=== PATIENT | female | born 1970 | race Caucasian/White ===

== ENCOUNTER 2016-11-21 11:46 | Day surgery (SDC) | payer OTHER, SELFPAY ==
[2016-11-21] MEDS ORDERED: LR 1,000 ML IV ONE (12:41)
[2016-11-21] MEDS ORDERED: LIDOCAINE 1% 2 ML INJ ID PRN (12:41)
[2016-11-21] MEDS ORDERED: MIDAZOLAM 2 MG/2 ML VIAL IVP ONE (12:44)
--- NOTE | 2016-11-21 12:44 | PDANEPAE ---
ANE History of Present Illness h/o breast implants presents for mastopexy ANE Past Medical History - Cardiovascular History Hx Hypertension: No Hx Arrhythmias: No Hx Chest Pain: No Hx Coronary Artery / Peripheral Vascular Disease: No Hx CHF / Valvular Disease: No Hx Palpitations: No - Pulmonary History Hx COPD: No Hx Asthma/Reactive Airway Disease: No Hx Recent Upper Respiratory Infection: No Hx Oxygen in Use at Home: No Hx Sleep Apnea: No Sleep Apnea Screening Result - Last Documented: Negative - Neurologic History Hx Cerebrovascular Accident: No Hx Seizures: No Hx Dementia: No - Endocrine History Hx Diabetes: No Obesity: no - Renal History Hx Renal Disorders: No - Liver History Hx Hepatic Disorders: No - Neurological & Psychiatric Hx Hx Neurological and Psychiatric Disorders: No - Cancer History Hx Cancer: No - Congenital Disorder History Hx Congenital Disorders: No - GI History Hx Gastrointestinal Disorders: No - Other Health History Other Health History: none - Chronic Pain History Chronic Pain: No - Surgical History Prior Surgeries: none ANE Review of Systems Review of Systems: - Exercise capacity METS (RN): 5 METS ANE Patient History - Allergies Allergies/Adverse Reactions: No Known Allergies Allergy (Unverified 09/07/09 16:30) - Home Medications Home medications: none Home Medications: NO HOME MEDS 09/07/09 [Last Taken Unknown] - Anes Hx Anes Hx: no prior problems - Smoking Hx Smoking Status: Never smoked - Family Anes Hx Family Hx Anesthesia Complications: none ANE Labs/Vital Signs - Vital Signs Height: 152.4 cm Weight: 49.895 kg ANE Physical Exam - Airway Neck exam: FROM Mallampati Score: Class 1 Mouth exam: normal dental/mouth exam - Pulmonary Pulmonary: no respiratory distress - Cardiovascular Cardiovascular: regular rate and rhythym - ASA Status ASA Status: II ANE Anesthesia Plan Anesthesia Plan: general endotracheal anesthesia
[2016-11-21 12:47] VITALS: PULSE 82
[2016-11-21] MEDS ORDERED: BACITRACIN ZINC 14.2 GM OINTTUBE TP ONE (12:49)
[2016-11-21] MEDS ORDERED: LIDOCAINE 1% 300 MG/30 ML SDV ONE (12:49)
--- NOTE | 2016-11-21 13:26 | PDGENHP ---
History & Physical Chief Complaint: desire to remove breast implants History of Present Illness: Susan is a 46 year old female who comes in to have her breast implants removed and the remaining tissue lifted. Pertinent Past, Social, Family History: non smoker Relevant Physical Exam: No masses in either breast. No axillary LAD. Implants soft and mobile. Cardiorespiratory Assessment: clear lung nichols, RRR
[2016-11-21] MEDS ORDERED: LIDOCAINE 0.5% 50 ML SDV ONE (14:08)
[2016-11-21] MEDS ORDERED: fentaNYL 100 MCG/2 ML INJ ONE (14:26)
[2016-11-21] MEDS ORDERED: ROCURONIUM 50 MG/5 ML VIAL ONE ×2 (14:27→15:21)
[2016-11-21] MEDS ORDERED: LIDOCAINE 2% 5 ML SDV ONE (14:27)
[2016-11-21] MEDS ORDERED: ONDANSETRON 4 MG/2 ML VIAL ONE (14:27)
[2016-11-21] MEDS ORDERED: DEXAMETHASONE 4 MG/ML VIAL ONE ×3 (14:27→14:40)
[2016-11-21] MEDS ORDERED: ceFAZolin 1 GM VIAL ONE ×2 (14:36)
[2016-11-21] MEDS ORDERED: ESMOLOL HCL 100 MG/10 ML VIAL IV ONE (14:48)
[2016-11-21] MEDS ORDERED: HYDROmorphONE/DILAUDID 2 MG/ML INJ ONE (14:56)
[2016-11-21] MEDS ORDERED: SUGAMMADEX SODIUM 200 MG/2 ML VIAL IVP ONE (15:21)
[2016-11-21] MEDS ORDERED: ALBUTEROL 3 ML DEYVIAL IH PRN (15:51)
[2016-11-21] MEDS ORDERED: METOCLOPRAMIDE 10 MG/2 ML VIAL IVP PRN (15:51)
[2016-11-21] MEDS ORDERED: HYDROmorphONE/DILAUDID 1 MG/ML INJ IVP PRN (15:51)
[2016-11-21] MEDS ORDERED: fentaNYL 100 MCG/2 ML INJ IVP PRN (15:51)
[2016-11-21] MEDS ORDERED: LR 500 ML IV PRN (15:51)
[2016-11-21] MEDS ORDERED: ACETAMINOPHEN 500 MG TAB PO PRN (15:51)
[2016-11-21] MEDS ORDERED: PROMETHAZINE HCL 25 MG/ML INJ IVP PRN (15:51)
[2016-11-21] MEDS ORDERED: NALOXONE HCL 0.4 MG/ML INJ IVP PRN (15:51)
[2016-11-21] MEDS ORDERED: OXYCODONE/APAP 5/325 TAB PO PRN (15:51)
[2016-11-21] MEDS ORDERED: ONDANSETRON 4 MG/2 ML VIAL IVP PRN (15:51)
--- NOTE | 2016-11-21 16:24 | POSTANESTH ---
Post Anesthetic Evaluation Cardiovascular Status: Normal, Stable Respiratory Status: Normal, Stable Level of Consciousness/Mental Status: Can Participate in Eval Pain Control: Adequate, Prn Tx Ordered Nausea/Vomiting Control: Adequate, Prn Tx Ordered Complications Possibly Related to Anesthesia: None Noted
[2016-11-21] MEDS ORDERED: HYDROmorphONE/DILAUDID 1 MG/ML INJ ONE (16:40)
[2016-11-21] MEDS ORDERED: OXYCODONE/APAP 5/325 TAB ONE (17:29)
[2016-11-21 17:46] VITALS: TEMP 97.5
[2016-11-21 17:48] VITALS: RESP 15; O2SAT 96
[2016-11-21 19:33] VITALS: BP 104/67
--- NOTE | 2016-11-22 01:55 | GOP ---
[f rep st] OPERATIVE REPORT DATE OF OPERATION: 11/21/2016 SURGEON: Nisa Turk Jr., MD MACHINE FILLER: Eddy Stanley CST, by surgeon request. ANESTHESIA: General inhalational anesthesia. PREOPERATIVE DIAGNOSIS: 1. Desire for removal of cosmetic breast implants. 2. Breast ptosis with desire to have breasts made smaller. POSTOPERATIVE DIAGNOSIS: 1. Desire for removal of cosmetic breast implants. 2. Breast ptosis with desire to have breasts made smaller. PROCEDURE PERFORMED: 1. Bilateral implant removal. 2. Bilateral Slade pattern breast reduction/mastopexy. FINDINGS: ESTIMATED BLOOD LOSS: 30 cc. INDICATIONS: The patient is a 46-year-old, white female, who came in after having a previous breast augmentation, feeling that the breasts were now too large for her body, as she had gained some weight and requested to have them removed and reshaped with a decrease in the overall size of the breasts. She was deemed an excellent candidate to have the implants removed from the breasts, lifted and redu ramy using a Slade pattern technique. She was taken to the operating room for that purpose. DESCRIPTION OF PROCEDURE: After risks and benefits of the procedure were explained to the patient, h ighlighting bleeding, infection, temporary or permanent nipple sensitivity changes, partial or comple te nipple loss, visible or hypertrophic scarring, poor wound healing, wound break down, poor cosmetic outcome and need for additional procedures, formal operative consent was obtained. She was taken to the operating room. After adequate inhalational anesthesia been provided, her premarked inframammar y crease incisions were injected with 1% lidocaine containing adrenaline. She was prepped and draped in normal sterile fashion. Procedure began by making the inferolateral incision bilaterally and tunneling down to the breast cap kassi. Capsulotomy was performed and small, intact, cohesive gel implants were removed. She was then placed in a seated position on the operating room table, and Petange's point was marked. She was pl aced back in the supine position. Under tension, Slade pattern was then marked around the desired nip ple position with 6 cm limbs. Medial palpation reveals minimal attachment of a desired inferior pedi zelda, and a bipedicle technique was utilized. Inferior, medial and lateral triangles were excised. M inimal undermining was performed to maximize vascularity to the nipple-areolar complex. A small amou nt of skin and fat above the nipple-areolar complex was removed. Slightly more tissue was removed fr om the larger lime right breast than the left breast to maximize symmetry. Then, #15 round DON drai ns were placed. Once the desired shape had been achieved, pockets were irrigated with normal saline. Meticulous hemostasis assured. The T-junction was closed with 2-0 Prolene suture. Horizontal and vertical limbs were closed using e verting deep dermal 3-0 Monocryl suture. Final skin eversion was carried out using surgical gildardo. Small dog ears were addressed bilaterally. The nipple-areolar complex was then inset under minimal tension using everting deep dermal 3-0 Monocryl suture in a running subcuticular 4-0 V-Loc 90 comple leslie closure. She had good capillary refill with good vascularity of the nipple-areolar complex. She had bacitracin, Xeroform, 4 x 4's, ABDs, and a compressive bra placed in the operating room. Then 1 5 cc of 0.25% plain Marcaine was instilled into each drain. She was extubated in the operating room, taken to the recovery room, awake and in stable condition. DRAINS: Two DON drains were placed. COMPLICATIONS: No complications. /[id number]/MODL
== END 2016-11-21 18:43 | disposition home or self-care (01) ==
LOC: FSGY 11:46
PROVIDERS: ATTEND Specialist
PROC: 0HPT0JZ Removal of Synthetic Substitute from Right Breast, Open Approach (ICD-10-PCS; principal; 2016-11-21 13:00)
PROC: 0HPU0JZ Removal of Synthetic Substitute from Left Breast, Open Approach (ICD-10-PCS; principal; 2016-11-21 13:00)
PROC: 0HBV0ZZ Excision of Bilateral Breast, Open Approach (ICD-10-PCS; principal; 2016-11-21 13:00)
PROC: 0HSV0ZZ Reposition Bilateral Breast, Open Approach (ICD-10-PCS; principal; 2016-11-21 13:00)
DX: Z45.811 Encounter for adjustment or removal of right breast implant (principal); Z45.812 Encounter for adjustment or removal of left breast implant; Z41.1 Encounter for cosmetic surgery; N62 Hypertrophy of breast; N64.81 Ptosis of breast
CPT/HCPCS: J0171; J0690; J1100; J1170; J2250; J2405; J3010